=== PATIENT | female | born 1950 | race Hispanic/Latino ===

== ENCOUNTER 2020-07-17 10:12 | Emergency (ER) | payer MEDICARE ==
[~2020-07-17] VITALS: Ht 160 cm; Wt 68.0 kg
[2020-07-17] MEDS ORDERED: ATENOLOL50 MG PO (10:54)
[2020-07-17] MEDS ORDERED: AMLODIPINE BESYL5 MG PO (12:20)
== END 2020-07-17 12:37 | disposition home or self-care (01) ==
LOC: FSED 10:43
DX: I10 Essential (primary) hypertension (principal); R00.2 Palpitations; R53.1 Weakness; R73.9 Hyperglycemia, unspecified
CPT/HCPCS: 80048; 80076; 81003; 82553; 84484; 85025; 93005; 99284